=== PATIENT | male | born 1945 | race Caucasian/White ===

== ENCOUNTER 2017-08-29 03:01 | Emergency (ER) | payer OTHER ==
[~2017-08-29] VITALS: Ht 182.9 cm; Wt 78.5 kg
[2017-08-29 03:41] LABS: HEMATOCRIT 40.1 % (38.0-50.0); HEMOGLOBIN 13.3 G/DL (12.5-16.6); MCH 31.3 PG (29.0-34.0); MCHC 33.2 G/DL (30.0-36.0); MCV 94.4 FL (86-99); PLATELET COUNT 185 K/uL (156-360); RBC DIS.WIDTH-CV 13.2 % (11.8-14.6); RBC DIS.WIDTH-SD 45.4 % (39-53); RED BLOOD COUNT 4.25 M/uL (4.00-5.50); WHITE BLOOD COUNT 8.8 K/uL (4.1-10.2)
[2017-08-29 03:50] LABS: ALBUMIN 3.8 g/dL (3.2-4.8); CHLORIDE 108 mEq/L (99-109); POTASSIUM 3.5 mEq/L (3.7-5.4); SODIUM 144 mEq/L (136-147)
[2017-08-29 03:52] LABS: GLUCOSE 102 mg/dL (70-99)
[2017-08-29 03:53] LABS: TOTAL PROTEIN 6.6 g/dL (6.4-8.3)
[2017-08-29 03:54] LABS: TOTAL BILIRUBIN 0.5 mg/dL (0.0-1.0)
[2017-08-29 03:56] LABS: ALKALINE PHOSPHATASE 34 IU/L (3-129); CREATININE 0.9 mg/dL (0.6-1.3); GFR ESTIMATE (CALCULATED) > 59 mL/min/ (58.99-99999)
[2017-08-29 03:57] LABS: UREA NITROGEN (BUN) 21 mg/dL (9-23)
[2017-08-29 03:58] LABS: AST (GOT) 24 IU/L (2-34)
[2017-08-29 03:59] LABS: ALT (GPT) 30 IU/L (3-49)
[2017-08-29] MEDS ORDERED: SEROQUEL12.5 MG PO (06:16)
[2017-08-29 08:27] LABS: APPEARANCE CLEAR ((CLEAR)); BILIRUBIN NEGATIVE; BLOOD NEGATIVE; COLOR YELLOW ((YELLOW)); GLUCOSE (STRIP) NEGATIVE; KETONES NEGATIVE; LEUKOCYTES NEGATIVE; NITRITE NEGATIVE; PROTEIN (STRIP) NEGATIVE; SPECIFIC GRAVITY 1.009 (1.000-1.030); UCUL ADDED? NO; UROBILINOGEN 0.2 MG/DL (0.2-1.0)
[2017-08-29 08:38] LABS: AMPHETAMINE NEGATIVE (500 ng/mL); BARBITURATES NEGATIVE (200 ng/mL); BENZODIAZEPINES NEGATIVE (150 ng/mL); BUPRENORPHINE NEGATIVE (10 ng/mL); COCAINE NEGATIVE (150 ng/mL); METHADONE NEGATIVE (200 ng/mL); METHAMPHETAMINE NEGATIVE (500 ng/mL); OPIATES (MORPHINE) NEGATIVE (100 ng/mL); OXYCODONE NEGATIVE (100 ng/mL); PHENCYCLIDINE NEGATIVE (25 ng/mL); PROPOXYPHENE NEGATIVE (300 ng/mL); THC CANNABINOIDS NEGATIVE (50 ng/mL); TRICYCLIC ANTIDEPRESSANTS NEGATIVE (300 ng/mL)
[2017-08-29 09:46] VITALS: BP 189/112
== END 2017-08-29 09:47 | disposition home or self-care (01) ==
LOC: EME → EDBD 03:01 → EME 09:47
PROVIDERS: Nurse Practitioner Family
DX: R45.1 Restlessness and agitation (principal); G30.9 Alzheimer's disease, unspecified; F03.91 Unspecified dementia, unspecified severity, with behavioral disturbance; I10 Essential (primary) hypertension; Z87.891 Personal history of nicotine dependence
CPT/HCPCS: 70450; 80053; 81003; 85027; 90837; 99281; 99285

== ENCOUNTER 2017-08-30 09:01 | Emergency (ER) | payer OTHER, BC ==
[~2017-08-30] VITALS: Ht 188 cm; Wt 81.5 kg
[~2017-08-30 09:01] MED LIST: SEROQUEL12.5 MG PO
[2017-08-30 16:51] VITALS: BP 185/113
== END 2017-08-30 16:40 | disposition home or self-care (01) ==
LOC: EME 09:01
DX: G30.9 Alzheimer's disease, unspecified (principal); F02.81 Dementia in other diseases classified elsewhere, unspecified severity, with behavioral disturbance; I10 Essential (primary) hypertension; Z87.891 Personal history of nicotine dependence
CPT/HCPCS: 90839; 99281; 99284

== ENCOUNTER 2017-10-06 18:10 | Inpatient (IN) | payer OTHER ==
[~2017-10-06] VITALS: Ht 182.9 cm; Wt 81.4 kg
[2017-10-06 19:23] LABS: HEMATOCRIT 39.5 % (38.0-50.0); HEMOGLOBIN 13.1 G/DL (12.5-16.6); MCH 31.6 PG (29.0-34.0); MCHC 33.2 G/DL (30.0-36.0); MCV 95.4 FL (86-99); PLATELET COUNT 146 K/uL (156-360); RBC DIS.WIDTH-CV 13.3 % (11.8-14.6); RBC DIS.WIDTH-SD 46.5 % (39-53); RED BLOOD COUNT 4.14 M/uL (4.00-5.50); WHITE BLOOD COUNT 14.3 K/uL (4.1-10.2)
[2017-10-06 19:33] LABS: CHLORIDE 107 mEq/L (99-109); POTASSIUM 3.9 mEq/L (3.7-5.4); SODIUM 143 mEq/L (136-147)
[2017-10-06 19:35] LABS: GLUCOSE 109 mg/dL (70-99)
[2017-10-06 19:38] LABS: CREATININE 0.9 mg/dL (0.6-1.3); GFR ESTIMATE (CALCULATED) > 59 mL/min/ (58.99-99999)
[2017-10-06 19:39] LABS: UREA NITROGEN (BUN) 20 mg/dL (9-23)
[2017-10-06 20:23] LABS: APPEARANCE SL.HAZY ((CLEAR)); BILIRUBIN NEGATIVE; BLOOD NEGATIVE; COLOR YELLOW ((YELLOW)); GLUCOSE (STRIP) NEGATIVE; KETONES NEGATIVE; LEUKOCYTES NEGATIVE; NITRITE NEGATIVE; PROTEIN (STRIP) 30; UROBILINOGEN 0.2 MG/DL (0.2-1.0)
[2017-10-06 20:34] LABS: BACTERIA NONE SEEN /HPF; CALCIUM OXALATE CRYSTALS 1+ /HPF; EPITHELIAL CELLS RARE /HPF; HYALINE CASTS 0-5 /LPF; MUCUS 2+ /LPF; RED BLOOD CELLS 0-5 /HPF (0-5); UCUL ADDED? NO; WHITE BLOOD CELLS 0-5 /HPF (0-5)
[2017-10-06 21:49] LABS: APPEARANCE CLEAR/COLORLESS; CSF PROTEIN 36 mg/dL (15-45); CSF TUBE NUMBER TUBE #4
[2017-10-06 21:55] LABS: GLUCOSE, CSF 76 mg/dL (40-80)
[2017-10-06 21:58] LABS: CSF EOSINOPHILS ND % (0-25); MONONUCLEAR WBC'S ND % (50-90); POLYNUCLEAR WBC'S ND % (0-3); RED CELL COUNT 1 /MM^3 (0-1); WHITE CELL COUNT 0 /MM^3 (0-5)
[2017-10-06] MEDS ORDERED: TYLENOL REGULA325 MG PO (22:28)
[2017-10-06] MEDS ORDERED: VITAMIN B-12500 MC3 PO (22:29)
[2017-10-06] MEDS ORDERED: DEPAKOTE250 MG PO (22:31)
[2017-10-06] MEDS ORDERED: LO-DOSE ASPIRIN81 M2 PO (22:31)
[2017-10-06] MEDS ORDERED: COLACE100 MG PO (22:32)
[2017-10-06] MEDS ORDERED: LISINOPRIL20 MG PO (22:32)
[2017-10-06] MEDS ORDERED: CERTAVITE SR W1 EACH PO (22:33)
[2017-10-07 01:22] VITALS: BP 171/96
[2017-10-07 03:25] VITALS: BP 120/70
[2017-10-07 06:40] LABS: BASOPHIL (%) 0.6 % (0-1); BASOPHIL COUNT 0.1 K/uL (0-0.1); EOSINOPHIL (%) 3.3 % (0-5); EOSINOPHIL COUNT 0.4 K/uL (0-0.3); HEMATOCRIT 35.9 % (38.0-50.0); HEMOGLOBIN 11.5 G/DL (12.5-16.6); IMMATURE GRANULOCYTE (%) 0.3 % (0.0-0.7); LYMPHOCYTE (%) 19.7 % (15-42); LYMPHOCYTE COUNT 2.1 K/uL (1.0-2.8); MCH 30.7 PG (29.0-34.0); MONOCYTE (%) 7.6 % (3-12); MONOCYTE COUNT 0.8 K/uL (0-0.8); NEUTROPHIL (%) 68.5 % (45-76); NEUTROPHIL COUNT 7.3 K/uL (1.8-6.4); PLATELET COUNT 121 K/uL (156-360); RBC DIS.WIDTH-CV 13.4 % (11.8-14.6); RBC DIS.WIDTH-SD 47.2 % (39-53); RED BLOOD COUNT 3.74 M/uL (4.00-5.50); WHITE BLOOD COUNT 10.6 K/uL (4.1-10.2)
[2017-10-07 06:50] VITALS: BP 139/70
[2017-10-07 07:02] LABS: CHLORIDE 109 MEQ/L (99-109); CREATININE 0.8 MG/DL (0.6-1.3); GFR ESTIMATE (CALCULATED) > 59 mL/min/ (58.99-99999); GLUCOSE 107 mg/dL (70-99); POTASSIUM 3.7 MEQ/L (3.7-5.4); SODIUM 144 MEQ/L (136-147); UREA NITROGEN (BUN) 15 mg/dL (9-23)
[2017-10-07 15:05] VITALS: BP 132/74
[2017-10-08 00:14] VITALS: BP 165/79
[2017-10-08 06:55] LABS: BASOPHIL (%) 0.7 % (0-1); BASOPHIL COUNT 0.1 K/uL (0-0.1); EOSINOPHIL (%) 4.5 % (0-5); EOSINOPHIL COUNT 0.5 K/uL (0-0.3); HEMATOCRIT 36.8 % (38.0-50.0); IMMATURE GRANULOCYTE (%) 0.5 % (0.0-0.7); LYMPHOCYTE (%) 17.3 % (15-42); LYMPHOCYTE COUNT 1.8 K/uL (1.0-2.8); MCH 30.8 PG (29.0-34.0); MCHC 32.6 G/DL (30.0-36.0); MCV 94.4 FL (86-99); MONOCYTE (%) 9.3 % (3-12); MONOCYTE COUNT 0.9 K/uL (0-0.8); NEUTROPHIL (%) 67.7 % (45-76); NEUTROPHIL COUNT 6.8 K/uL (1.8-6.4); PLATELET COUNT 117 K/uL (156-360); RBC DIS.WIDTH-CV 13.2 % (11.8-14.6); RBC DIS.WIDTH-SD 45.6 % (39-53); WHITE BLOOD COUNT 10.1 K/uL (4.1-10.2)
[2017-10-08 07:12] LABS: CHLORIDE 109 MEQ/L (99-109); CREATININE 0.7 MG/DL (0.6-1.3); GFR ESTIMATE (CALCULATED) > 59 mL/min/ (58.99-99999); GLUCOSE 111 mg/dL (70-99); POTASSIUM 3.5 MEQ/L (3.7-5.4); SODIUM 142 MEQ/L (136-147); UREA NITROGEN (BUN) 12 mg/dL (9-23)
[2017-10-08 08:18] VITALS: BP 147/80
[2017-10-08 15:00] VITALS: BP 145/77
[2017-10-09 00:32] VITALS: BP 163/80
[2017-10-09 02:38] VITALS: BP 110/62
[2017-10-09 07:50] VITALS: BP 166/80
[2017-10-09 15:40] VITALS: BP 160/83
[2017-10-09 20:10] VITALS: BP 170/90
[2017-10-09 23:30] VITALS: BP 172/84
[2017-10-10 06:47] LABS: HEMATOCRIT 34.1 % (38.0-50.0); HEMOGLOBIN 11.4 G/DL (12.5-16.6); MCH 31.4 PG (29.0-34.0); MCHC 33.4 G/DL (30.0-36.0); MCV 93.9 FL (86-99); PLATELET COUNT 128 K/uL (156-360); RBC DIS.WIDTH-SD 44.9 % (39-53); RED BLOOD COUNT 3.63 M/uL (4.00-5.50); WHITE BLOOD COUNT 8.1 K/uL (4.1-10.2)
[2017-10-10 07:22] LABS: CHLORIDE 109 MEQ/L (99-109); CREATININE 0.9 MG/DL (0.6-1.3); GFR ESTIMATE (CALCULATED) > 59 mL/min/ (58.99-99999); GLUCOSE 96 mg/dL (70-99); POTASSIUM 3.5 MEQ/L (3.7-5.4); SODIUM 144 MEQ/L (136-147); UREA NITROGEN (BUN) 15 mg/dL (9-23)
[2017-10-10 08:31] VITALS: BP 179/95
[2017-10-10 16:01] VITALS: BP 174/91
[2017-10-11] VITALS: BP 140/74
[2017-10-11 07:15] VITALS: BP 180/82
[2017-10-11 15:42] VITALS: BP 186/90
[2017-10-11 23:51] VITALS: BP 140/63
[2017-10-12 09:00] VITALS: BP 139/78
[2017-10-12 15:30] VITALS: BP 138/80
[2017-10-12 23:04] VITALS: BP 142/70
[2017-10-13 06:40] VITALS: BP 170/80
[2017-10-13 15:15] VITALS: BP 137/90
[2017-10-14] VITALS: BP 127/80; BP 160/80
[2017-10-14 07:51] VITALS: BP 159/84
[2017-10-14 16:57] VITALS: BP 150/74
[2017-10-14 23:57] VITALS: BP 126/61
[2017-10-15 07:32] VITALS: BP 163/79
[2017-10-15] MEDS ORDERED: LISINOPRIL10 MG PO (12:55)
== END 2017-10-15 16:18 | DRG 194 ==
LOC: EME 18:10 → EDOF 23:07 → 5EAST 23:07 → ENRESERV 23:15 → 5EAST 10-07 00:50 → ENRESERV 10-07 18:45 → 5EAST 10-07 21:42 → ENPENDDIS 10-15 17:00
PROVIDERS: Emergency Medicine; Family Medicine
PROC: 009U3ZX Drainage of Spinal Canal, Percutaneous Approach, Diagnostic (ICD-10-PCS; principal; 2017-10-06)
DX: J18.9 Pneumonia, unspecified organism (principal); E86.0 Dehydration; I95.9 Hypotension, unspecified; G30.9 Alzheimer's disease, unspecified; F02.81 Dementia in other diseases classified elsewhere, unspecified severity, with behavioral disturbance; R09.02 Hypoxemia; I10 Essential (primary) hypertension; R29.6 Repeated falls; Z91.81 History of falling; Z87.891 Personal history of nicotine dependence; Z79.899 Other long term (current) drug therapy; Z66 Do not resuscitate
CPT/HCPCS: 71045; 71046; 80048; 81003; 82945; 84157; 85025; 85027; 87070; 87205; 87502; 89051; 93005; 94660; 94799; 99281; 99285; J0696; J7030

== ENCOUNTER 2017-11-27 16:19 | Emergency (ER) | payer OTHER ==
[~2017-11-27] VITALS: Ht 182.9 cm; Wt 81.0 kg
[~2017-11-27 16:19] MED LIST changes: +CERTAVITE SR W1 EACH PO; +COLACE100 MG PO; +DEPAKOTE250 MG PO; +LISINOPRIL10 MG PO; +LISINOPRIL20 MG PO; +LO-DOSE ASPIRIN81 M2 PO; +TYLENOL REGULA325 MG PO; +VITAMIN B-12500 MC3 PO
[2017-11-27 20:11] VITALS: BP 156/85
== END 2017-11-27 20:18 ==
LOC: EME 16:19
DX: Z87.898 Personal history of other specified conditions (principal); I10 Essential (primary) hypertension; F03.90 Unspecified dementia, unspecified severity, without behavioral disturbance, psychotic disturbance, mood disturbance, and anxiety; Z79.82 Long term (current) use of aspirin; Z87.891 Personal history of nicotine dependence